=== PATIENT | female | born 1975 | race Caucasian/White ===

== ENCOUNTER 2025-06-27 11:48 | Emergency (ER) | payer OTHER, SELFPAY ==
[2025-06-27 11:52] VITALS: BP 174/97
[2025-06-27 11:54] VITALS: BMI 24.0
[2025-06-27 11:58] VITALS: BP 174/97
[2025-06-27 12:00] VITALS: BP 166/90
[2025-06-27 12:17] LABS: Hematocrit 37.7 % (37.0-47.0); Hemoglobin 12.5 g/dL (12.0-16.0); Mean Corp Hgb Conc. 33.2 g/dL (33.0-37.0); Mean Corpuscular Volume 81.6 fL (81.0-99.0); Nucleated Red Blood Cells % 0 %; Platelet Count 409 10^3/uL (130-400); Red Cell Dist. Width 14.6 % (11.5-14.5)
--- NOTE | 2025-06-27 12:47 | ED.GENMED ---
History of Present Illness
General
Chief Complaint: Blood Pressure Problem
Source: patient and records
Exam Limitations: none
Time Seen by Provider: 06/27/25 12:18
Nursing documentation reviewed up to this point in time: agreed with
History of Present Illness
History of Present Illness:
49-year-old female from local custodial has been incarcerated for few months presents with dizziness elevated blood pressure, vomiting, worse when she sits forward or better when she rests, she was tachycardic apparently referred to the ER, here she
appears comfortable only has symptoms with sitting forward, no fever or chills no chest pain or shortness of breath she is only had some crackers today
Past History
Past History
ED Past Medical History: HTN
Social History
Tobacco: Non-smoker
Alcohol: None
Drug: None
Living: custodial
Employment: Not employed
Review of Systems
Review of Systems
All Other Systems: Not applicable
Constitutional: Reports no symptoms; Denies fever or fatigue
EENT: Reports no symptoms
Cardiac: Reports no symptoms
ABD/GI: Reports nausea and vomiting; Denies abdominal pain
Neurological: Reports dizzy; Denies weakness or numbness
Endocrine: Reports no symptoms
Hematologic/Lymphatic: Reports no symptoms
Phy Exam
Physical Exam
Physical Exam:
Physical Exam
General: no apparent distress, not acutely ill
Neck: Dry lips
Heart: Regular
Lungs: no acute respiratory distress. clear bilaterally
Abdomen: Soft nontender
Neuro: alert and oriented. no focal neurological deficits normal [id number] bilaterally equal puller through strength
Skin: no rash
Psychiatric: well kept. interactive and cooperative
Extremities: no edema.
Course
Orders/Labs/Results
Orders:
Orders
06/27/25 11:52
EKG [Electrocardiogram (*1)] Urgent
Reason for Study: Chest Pain
EKG- Treatment ONCE
06/27/25 12:01
Complete Blood Count/With Diff Urgent
Comprehensive Metabolic Panel Urgent
06/27/25 13:23
Ketorolac [Toradol] 30 mg IV NOW STA
Ondansetron Injectable [Zofran] 4 mg IV NOW STA
06/27/25 13:30
0.9% Sodium Chloride 1000 ml [Nss] 1,000 ml IV BOLUS
Abnormal Lab Results
06/27/25
12:01
RDW 14.6 H %
(11.5-14.5)
Plt Count 409 H 10^3/uL
(130-400)
Glucose 142 H mg/dl
(70-99)
06/27/25 12:01
06/27/25 12:01
Vital Signs
Initial and Last Documented VS:
Initial Vital Signs
Temp Pulse Resp BP Pulse Ox
98.3 F 84 12 174/97 97
06/27/25 11:52 06/27/25 11:52 06/27/25 11:52 06/27/25 11:52 06/27/25 11:52
Last Documented Vital Signs
Temp Pulse Resp BP Pulse Ox
98.3 F 67 13 147/84 97
06/27/25 11:52 06/27/25 13:38 06/27/25 13:15 06/27/25 13:00 06/27/25 13:15
MDM/Problems Addressed
Differential Diagnosis Includes:
Accelerated hypertension/ vertigo, withdrawal, dehydration, doubt ACS
MDM/Problems Addressed:
Dizziness hypertension
Chronic conditions affecting care: HTN
Acute Exacerbation and/or Progression of Chronic Illness: HTN
*Pulse Oximetry
SaO2: 97
Oxygen Mode of Delivery: Room air
Patient hypoxic: no
*EKG
Interpreted by ED Provider?: Yes
Interpretation: normal
Comparison EKG: no comparison EKG present
Rate: normal
Rhythm: sinus
Ischemia: non-specific ST changes
*Patient Financial Coordinator Interpretation
Rate: normal
Interpretation: normal
Heart Rate: 78
Rhythm: sinus
*Critical Care Note
Total Time (30-74mins, 75-104mins- exclusive of procedures): Not Applicable
Update Note
Update Note:
1500 update after saline Zofran patient looks better no further emesis, is a nonfocal neurologic exam blood pressure is normalized normal finger-nose, clear speech, will try p.o. challenge with an eye towards discharge back to custodial
ED Attending Note
-
Portions of this chart may have been created with voice recognition software.� Occasional wrong word or��sound alike� substitutions may have occurred due to the inherent limitations of voice recognition software.
Discharge Plan
Departure
Referrals:
[facility] [Family Provider, General]
Interventions
Interventions:
*Risk Screen - Suicide Last Done: 06/27/25 11:54
*Neglect/Abuse Screening Last Done: 06/27/25 11:54
*ED COVID-19 Vaccine History Last Done: 06/27/25 11:54
Discharge Date and Time
Print Language: TURKISH
[2025-06-27 12:48] LABS: ALT (SGPT) 24 U/L (0-35); AST (SGOT) 29 U/L (14-36); Albumin 4.6 g/dl (3.5-5.0); Alkaline Phosphatase 61 U/L (38-126); Blood Urea Nitrogen 13 mg/dl (7-17); Calcium 9.5 mg/dl (8.4-10.2); Carbon Dioxide 25 mmol/L (22-30); Chloride 103 mmol/L (98-107); Estimated Creatinine Clearance 96 ml/min; Glucose 142 mg/dl (70-99); Potassium 4.0 mmol/L (3.5-5.1); Sodium 137 mmol/L (135-145); Total Protein 8.1 g/dl (6.3-8.2); eGFR > 60.00
[2025-06-27 13:00] VITALS: BP 147/84
[2025-06-27] MEDS: TORADOL 30 MG IV (13:26)
[2025-06-27] MEDS: ZOFRAN 4 MG IV (13:27)
[2025-06-27] MEDS: NSS 1000 IV (13:29)
[2025-06-27 14:00] VITALS: BP 149/84
[2025-06-27 15:00] VITALS: BP 131/81
== END 2025-06-27 15:30 ==
LOC: EMR 11:48
PROVIDERS: EMERGENCY PHYSICIAN Emergency Medicine
DX: R11.2 Nausea with vomiting, unspecified (principal); R42 Dizziness and giddiness; I10 Essential (primary) hypertension
CPT/HCPCS: 99283; 96374; 96375; 96376; 96361; 80053; 85025; 93005